=== PATIENT | male | born 1980 | race Caucasian/White ===

== ENCOUNTER 2019-10-20 12:51 | Inpatient (IN) ==
[2019-10-20 13:38] LABS: Basophils % 0.4 % (0.0-0.8); Eosinophils # 0.1 10*3/uL (0.0-0.87); Eosinophils % 1.1 % (0.00-10.9); Hematocrit 41.4 VOL% (42.0-52.0); Hemoglobin 14.4 GM/DL (14.0-18.0); Immature Granulocytes % 0.4 %; Immature Granulocytes Absolute 0.03 #; Lymphocytes # 1.8 10*3/uL (1.4-4.0); Lymphocytes % 24.7 % (21.2-54.2); Mean Corpuscular HGB Conc 34.8 GM/DL (32-36); Mean Corpuscular Volume 101.5 FL (87-102); Mean Platelet Volume 10.5 FL (9.6-12.0); Monocytes % 11.3 % (1.7-12.7); Neutrophils % 62.1 % (38.7-73.9); Red Blood Count 4.08 MC/CUMM (3.8-5.5); Red Cell Distribution Width 14.6 % (9.3-17.3); White Blood Count 7.2 T/CUMM (4-12)
[2019-10-20 13:43] LABS: Platelet Count 64 T/CUMM (130-400)
[2019-10-20 13:46] LABS: INR 1.7; PT Patient Result 17.6 SECS (9.8-11.9)
[2019-10-20 13:54] LABS: Platelet Estimate Decreased
[2019-10-20 13:55] LABS: Albumin 2.3 G/DL (3.4-5.0); Calcium 8.4 MG/DL (8.5-10.1); Osmolality,Calculated 273.5 MOS/KG (273-304); Total Protein 7.2 G/DL (6.4-8.3)
[2019-10-20] MEDS ORDERED: FUROSEMIDE 40 MG/4 ML VIAL IV STA (14:12)
[2019-10-20] MEDS ORDERED: ACETAMINOPHEN 325 MG TABLET PO PRN (14:39)
[2019-10-20] MEDS ORDERED: ONDANSETRON 4 MG/2 ML VIAL IV PRN (14:39)
[2019-10-20] MEDS ORDERED: DOCUSATE SODIUM 100 MG CAPSULE PO PRN (14:39)
[2019-10-20] MEDS ORDERED: hydrALAZINE 20 MG/1 ML VIAL IV PRN (14:39)
[2019-10-20] MEDS ORDERED: ALPRAZolam 0.5 MG TABLET PO PRN (14:44)
[2019-10-20 15:34] LABS: Risk Ratio 4.68; VLDL CHOLESTEROL 16.8 MG/DL
[2019-10-20 15:43] LABS: Albumin 2.4 G/DL (3.4-5.0); Total Protein 7.2 G/DL (6.4-8.3)
[2019-10-20] MEDS: FUROSEMIDE 40 MG/4 ML VIAL IV SCH (16:00)
[2019-10-20] MEDS: cefTRIAXone 1,000 MG in SYRINGE 1 EACH IV SCH (16:11)
[2019-10-20 19:30] LABS: Apearance,Urine CLEAR (Clear); Bilirubin,Urine Negative (Negative); Blood, Urine Large mg/dL (Negative); Calcium Oxalate Crystals,Urine Occasional /HPF (Few); Glucose,Urine (UA) Negative (Negative); Hyaline Casts,Urine 32 /LPF (0-3); Ketones,Urine Negative (Negative); Mucus,Urine Occasional /LPF (Occasional); Nitrite,Urine Negative (Negative); Protein,Urine Negative; RBC,Urine 39 /HPF (0-4); Urine Color Amber (Yellow); Urine Specific Gravity 1.017 (1.001-1.035); Urine Urobilinogen < 2.0 EU/DL (0.2-1.0); WBC,Urine 2 /HPF (0-6)
[2019-10-20] MEDS: PANTOPRAZOLE 40 MG TABLET PO SCH (20:58)
[2019-10-20] MEDS: guaiFENesin/DM ER 600-30 MG TABLET PO SCH (20:58)
[2019-10-21 06:04] LABS: Basophils % 0.4 % (0.0-0.8); Eosinophils # 0.1 10*3/uL (0.0-0.87); Hematocrit 36.1 VOL% (42.0-52.0); Hemoglobin 12.5 GM/DL (14.0-18.0); Immature Granulocytes % 0.3 %; Immature Granulocytes Absolute 0.02 #; Lymphocytes # 1.6 10*3/uL (1.4-4.0); Lymphocytes % 24.3 % (21.2-54.2); Mean Corpuscular HGB Conc 34.6 GM/DL (32-36); Mean Platelet Volume 10.9 FL (9.6-12.0); Monocytes % 12.2 % (1.7-12.7); Neutrophils % 61.8 % (38.7-73.9); Red Blood Count 3.54 MC/CUMM (3.8-5.5); Red Cell Distribution Width 14.6 % (9.3-17.3); White Blood Count 6.7 T/CUMM (4-12)
[2019-10-21 06:05] LABS: Platelet Count 53 T/CUMM (130-400)
[2019-10-21 06:16] LABS: INR 1.8; PT Patient Result 18.3 SECS (9.8-11.9)
[2019-10-21 06:24] LABS: Albumin 1.9 G/DL (3.4-5.0); Bilirubin,Total 3.7 MG/DL (0.2-1.0); Osmolality,Calculated 272.7 MOS/KG (273-304); Total Protein 5.8 G/DL (6.4-8.3)
[2019-10-21] MEDS: FUROSEMIDE 40 MG/4 ML VIAL IV SCH ×2 (08:44→15:59)
[2019-10-21] MEDS ORDERED: SERTRALINE 50 MG TABLET PO SCH (09:00)
[2019-10-21 10:15] LABS: Lymphocytes,Pleural Fluid 65 %; Monocytes,Pleural Fluid 7 %; Neutrophils,Pleural Fluid 28 %; RBC,Pleural Fluid 407 T/CUMM
[2019-10-21] MEDS: PANTOPRAZOLE 40 MG TABLET PO SCH ×2 (10:27→21:07)
[2019-10-21] MEDS: guaiFENesin/DM ER 600-30 MG TABLET PO SCH ×2 (10:27→21:07)
[2019-10-21] MEDS ORDERED: ACETAMINOPHEN 500 MG TABLET PO PRN (13:55)
[2019-10-21] MEDS: SPIRONOLACTONE 100 MG TABLET PO SCH (14:26)
[2019-10-21] MEDS: cefTRIAXone 1,000 MG in SYRINGE 1 EACH IV SCH (15:51)
[2019-10-22 06:38] LABS: Basophils % 0.2 % (0.0-0.8); Eosinophils # 0.2 10*3/uL (0.0-0.87); Eosinophils % 1.6 % (0.00-10.9); Hematocrit 38.2 VOL% (42.0-52.0); Hemoglobin 13.4 GM/DL (14.0-18.0); Immature Granulocytes % 0.3 %; Immature Granulocytes Absolute 0.03 #; Lymphocytes # 2.2 10*3/uL (1.4-4.0); Lymphocytes % 24.3 % (21.2-54.2); Mean Corpuscular HGB Conc 35.1 GM/DL (32-36); Mean Corpuscular Volume 100.3 FL (87-102); Mean Platelet Volume 11.5 FL (9.6-12.0); Monocytes % 11.6 % (1.7-12.7); Platelet Count 57 T/CUMM (130-400); Red Blood Count 3.81 MC/CUMM (3.8-5.5); Red Cell Distribution Width 14.6 % (9.3-17.3); White Blood Count 9.1 T/CUMM (4-12)
[2019-10-22 06:47] LABS: INR 1.9; PT Patient Result 19.3 SECS (9.8-11.9)
[2019-10-22 06:48] LABS: Albumin 1.8 G/DL (3.4-5.0); Bilirubin,Total 4.4 MG/DL (0.2-1.0); Calcium 8.1 MG/DL (8.5-10.1); Osmolality,Calculated 270.8 MOS/KG (273-304); Total Protein 5.8 G/DL (6.4-8.3)
[2019-10-22 07:08] LABS: Band Neutrophils 6 % (0-10); Eosinophils 2 % (0-10); Lymphocytes 16 % (20-55); Segmented Neutrophils 65 % (50-85); Total Cells Counted 100
[2019-10-22 07:09] LABS: Anisocytosis Slight; Macrocytosis 1+; Platelet Estimate Decreased; Smudge Cells Few
[2019-10-22] MEDS ORDERED: MULTIVITAMIN (CENTRUM) TABLET PO SCH (09:00)
[2019-10-22] MEDS ORDERED: SERTRALINE 100 MG TABLET PO SCH (09:00)
[2019-10-22] MEDS: PANTOPRAZOLE 40 MG TABLET PO SCH (09:51)
[2019-10-22] MEDS: SPIRONOLACTONE 100 MG TABLET PO SCH (09:51)
[2019-10-22] MEDS: guaiFENesin/DM ER 600-30 MG TABLET PO SCH (09:51)
[2019-10-22] MEDS: FUROSEMIDE 40 MG/4 ML VIAL IV SCH (09:52)
[2019-10-22 11:12] VITALS: BP 128/74
== END 2019-10-22 12:30 | disposition home or self-care (01) | DRG 433 ==
LOC: N.ED 12:51 → SUATTDRO 14:39 → N.EDINP 14:39 → N.3E 15:14
PROVIDERS: ADMIT Internal Medicine; ATTEND Hospitalist